=== PATIENT | male | born 2000 | race Caucasian/White ===

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

== ENCOUNTER 2021-01-30 13:15 | Emergency (ER) | payer BC, MEDICAID, OTHER ==
--- NOTE | 2021-01-30 13:44 | EDM.PDOC ---
ED HPI GENERAL MEDICAL PROBLEM - General Chief Complaint: Respiratory Problem Stated Complaint: SOB Time Seen by Provider: 01/30/21 13:30 Source of Information: Reports: Patient History Limitations: Reports: No Limitations - History of Present Illness INITIAL COMMENTS - FREE TEXT/NARRATIVE: Patient presents for chest congestion, tightness in the chest, difficulty to take a deep breath. He works at [employer] in [place] and originally became ill 1 month ago. He had cough, green sputum and felt unwell. Was seen by a physician, started on a " pink " antibiotic twice a day and an inhaler. He states that the inhaler seemed to help him, but the antibiotics did not change anything. He continued to have sputum, now has some bloody flecks in it, feels like it is difficult to take a deep breath. Is able to lay flat to sleep, still using the inhaler. Is a smoker and vapes, usually nicotine, but sometimes marijuana. No fevers, headaches, runny nose, body aches, tick or bug bites, no neck stiffness. Has not had covid, no known sick contacts, and has not had the covid vaccine. He presents today because he is worsening and feels like he can not take a deep breath. Onset: Gradual Duration: Getting Worse Location: Reports: Chest Quality: Reports: Dull Severity: Moderate Improves with: Reports: Other (his inhaler) Associated Symptoms: Reports: Other (course of antibiotics, inhaler) - Related Data Allergies Allergy/AdvReac Type Severity Reaction Status Date / Time No Known Allergies Allergy Verified 12/18/19 00:57 Home Meds: Home Meds QUEtiapine Fumarate [Quetiapine Fumarate] 400 mg PO BEDTIME 07/10/18 [History] Amphetamine/Dextroamphetamine [Adderall XR] 1 tab PO DAILY 01/30/21 [History] Past Medical History HEENT History: Reports: Impaired Vision, Other (See Below) Other HEENT History: Patient wears glasses sometimes soft contact lenses. Cardiovascular History: Reports: None Respiratory History: Reports: None Gastrointestinal History: Reports: GERD, None Genitourinary History: Reports: None Musculoskeletal History: Reports: None Neurological History: Reports: Headaches, Chronic, None Psychiatric History: Reports: ADD, ADHD, Anxiety, Depression, Other (See Below), Suicide Attempt, Suicidal Ideation Other Psychiatric History: Patient did try to hang himself at age 9 with no inpatient psychiatric treatment at that time however subsequent counseling. Endocrine/Metabolic History: Reports: None Hematologic History: Reports: None Immunologic History: Reports: None Oncologic (Cancer) History: Reports: None Dermatologic History: Reports: Other (See Below) Other Dermatologic History: Mild acne vulgaris - Infectious Disease History Infectious Disease History: Reports: None. Denies: C-Difficile, Chicken Pox, Measles, Meningitis, Mononucleosis, MRSA, Mumps, Pertussis (Whooping Cough), Rheumatic Fever, Rubella, Scarlet Fever, Shingles, TB, VRE - Past Surgical History Head Surgeries/Procedures: Reports: None HEENT Surgical History: Reports: None Cardiovascular Surgical History: Reports: None Respiratory Surgical History: Reports: None GI Surgical History: Reports: None Male Surgical History: Reports: Circumcision, Other (See Below) Other Male Surgeries/Procedures: Circumcision as an infant Endocrine Surgical History: Reports: None Neurological Surgical History: Reports: None Musculoskeletal Surgical History: Reports: None Oncologic Surgical History: Reports: None Dermatological Surgical History: Reports: None - Past Imaging History Past Imaging History: Reports: None. Denies: CAT Scan Social & Family History - Family History Psychiatric: Reports: Anxiety, Bipolar, Depression, Other (See Below) Other Psychiatric Family History: Father with alcohol abuse and anxiety depression disorder. Mother with bipolar disorder. - Tobacco Use Tobacco Use Status *Q: Current Every Day Tobacco User Tobacco Use Within Last Twelve Months: Cigarettes, Vaping - Caffeine Use Caffeine Use: Reports: Energy Drinks (1 can per week), Soda (3 sodas per week). 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 Denies: Fever, Chills, Malaise, Decreased Appetite HEENT: Reports: No Symptoms. Denies: Ear Discharge, Rhinitis, Sinus Problem, Throat Pain, Throat Swelling Respiratory: Reports: Shortness of Breath, Pleuritic Chest Pain, Cough, Sputum, Hemoptysis Cardiovascular: Reports: Chest Pain, Dyspnea on Exertion. Denies: Edema, Lightheadedness Endocrine: Reports: No Symptoms GI/Abdominal: Reports: No Symptoms. Denies: Abdominal Pain, Anorexia, Black Stool, Diarrhea, Nausea, Vomiting : Reports: No Symptoms. Denies: Dysuria, Flank Pain, Frequency Musculoskeletal: Reports: No Symptoms. Denies: Joint Pain, Muscle Pain Skin: Denies: Rash Neurological: Reports: No Symptoms. Denies: Confusion, Dizziness, Headache, Numbness, Paresthesia Psychiatric: Reports: No Symptoms. Denies: Depression, Suicidal Ideation Hematologic/Lymphatic: Reports: No Symptoms ED EXAM, GENERAL - Physical Exam Exam: See Below Exam Limited By: No Limitations General Appearance: Alert, WD/WN, No Apparent Distress Eye Exam: Bilateral Eye: EOMI, Normal Inspection, PERRL Ears: Normal External Exam, Normal Canal, Hearing Grossly Normal, Normal TMs Nose: Nasal Swelling, Other (no sinus tenderness to percussion in frontal or maxillary). No: Nasal Tenderness, Nasal Drainage, Clear Rhinorrhea Throat/Mouth: Normal Lips, Normal Teeth, Normal Gums, Normal Voice, No Airway Compromise, Other (2+ large tonsils, no erythema or exudate) Head: Atraumatic, Normocephalic Neck: Normal Inspection, Supple, Non-Tender, Full Range of Motion. No: Lymphadenopathy (L), Lymphadenopathy (R) Respiratory/Chest: No Respiratory Distress, Lungs Clear, Normal Breath Sounds, Chest Non-Tender, Decreased Breath Sounds (bases minimally) Cardiovascular: Normal Peripheral Pulses, Regular Rate, Rhythm, No Edema GI/Abdominal: Normal Bowel Sounds Extremities: Normal Inspection, Normal Range of Motion, Non-Tender. No: Pedal Edema Neurological: Alert, Oriented, CN II-XII Intact, Normal Cognition, Normal Gait, No Motor/Sensory Deficits Psychiatric: Normal Affect, Normal Mood #1 Interpretation EKG Date: 01/30/21 Time: 13:57 Rhythm: NSR Rate (Beats/Min): 79 Spring: Normal P-Wave: Present QRS: Normal ST-T: Normal QT: Normal Comparison: NA - No Prior EKG Course - Vital Signs Last Recorded V/S: Last Vital Signs Temp 36.7 C 01/30/21 13:15 Pulse 84 01/30/21 13:15 Resp 18 01/30/21 13:15 BP 130/74 01/30/21 13:15 Pulse Ox 100 01/30/21 13:15 - Orders/Labs/Meds Orders: Active Orders 24 hr Category Date Time Status Chest 2V [CR] Stat Exams 01/30/21 14:20 Taken CORONAVIRUS COVID-19 IGNACIO [MOLEC] Stat Lab 01/30/21 13:40 Received Labs: Laboratory Tests 01/30/21 01/30/21 01/30/21 Range/Units 13:40 13:45 13:45 WBC 6.8 (4.0-10.2) K/uL RBC 4.31 L (4.33-5.41) M/uL Hgb 13.1 D (13.1-16.8) g/dL Hct 39.6 (39.0-49.0) % MCV 91.9 D (84.0-98.0) fL MCH 30.4 (28.2-33.3) pg MCHC 33.1 (31.7-36.0) g/dL RDW 13.4 (11.2-14.1) % Plt Count 227 (150-350) K/uL Neut % (Auto) 59.1 (45.0-80.0) % Lymph % (Auto) 27.7 (10.0-50.0) % Randall % (Auto) 9.7 (2.0-14.0) % Eos % (Auto) 3.2 (0.0-5.0) % Baso % (Auto) 0.3 (0.0-2.0) % Neut # (Auto) 4.03 (1.40-7.00) K/uL Lymph # (Auto) 1.89 (0.50-3.50) K/uL Randall # (Auto) 0.66 (0.00-1.00) K/uL Eos # (Auto) 0.22 (0.00-0.50) K/uL Baso # (Auto) 0.02 (0.00-0.20) K/uL D-Dimer, Quantitative < 100 (0-400) ng/mL Sodium (136-145) mmol/L Potassium (3.5-5.1) mmol/L Chloride (98-107) mmol/L Carbon Dioxide (21.0-32.0) mmol/L Anion Gap (7-15) meq/L BUN (7-18) mg/dL Creatinine (0.51-1.17) mg/dL Est Cr Clr Drug Dosing Estimated GFR (MDRD) mL/min Glucose (70-99) mg/dL Calcium (8.5-10.1) mg/dL Total Bilirubin (0.2-1.0) mg/dL AST (15-37) U/L ALT (12-78) U/L Alkaline Phosphatase (46-116) IU/L Troponin I High Sens (<=76) ng/L C-Reactive Protein (<=0.9) mg/dL Total Protein (6.4-8.2) g/dL Albumin (3.4-5.0) g/dL SARS-CoV-2 Ag (Rapid) Negative (NEGATIVE) 01/30/21 Range/Units 13:45 WBC (4.0-10.2) K/uL RBC (4.33-5.41) M/uL Hgb (13.1-16.8) g/dL Hct (39.0-49.0) % MCV (84.0-98.0) fL MCH (28.2-33.3) pg MCHC (31.7-36.0) g/dL RDW (11.2-14.1) % Plt Count (150-350) K/uL Neut % (Auto) (45.0-80.0) % Lymph % (Auto) (10.0-50.0) % Randall % (Auto) (2.0-14.0) % Eos % (Auto) (0.0-5.0) % Baso % (Auto) (0.0-2.0) % Neut # (Auto) (1.40-7.00) K/uL Lymph # (Auto) (0.50-3.50) K/uL Randall # (Auto) (0.00-1.00) K/uL Eos # (Auto) (0.00-0.50) K/uL Baso # (Auto) (0.00-0.20) K/uL D-Dimer, Quantitative (0-400) ng/mL Sodium 143 (136-145) mmol/L Potassium 3.9 (3.5-5.1) mmol/L Chloride 107 (98-107) mmol/L Carbon Dioxide 25.4 (21.0-32.0) mmol/L Anion Gap 10.6 (7-15) meq/L BUN 17 (7-18) mg/dL Creatinine 0.85 (0.51-1.17) mg/dL Est Cr Clr Drug Dosing TNP Estimated GFR (MDRD) > 60 mL/min Glucose 100 H (70-99) mg/dL Calcium 8.5 (8.5-10.1) mg/dL Total Bilirubin 0.5 (0.2-1.0) mg/dL AST 24 (15-37) U/L ALT 46 (12-78) U/L Alkaline Phosphatase 68 (46-116) IU/L Troponin I High Sens 10 (<=76) ng/L C-Reactive Protein < 0.2 (<=0.9) mg/dL Total Protein 7.1 (6.4-8.2) g/dL Albumin 4.3 (3.4-5.0) g/dL SARS-CoV-2 Ag (Rapid) (NEGATIVE) Meds: Medications Discontinued Medications Generic Name Dose Route Start Last Admin Trade Name Jeremías PRN Reason Stop Dose Admin Azithromycin 500 mg 01/30/21 15:07 Azithromycin 250 Mg Tab PO 01/30/21 15:08 ONETIME ONE - Radiology Interpretation Free Text/Narrative:: no acute changes, preliminary read, official pending - Re-Assessments/Exams Free Text/Narrative Re-Assessment/Exam: 01/30/21 13:51 Patient presents with a month long compliant of cough, worsening shortness of breath and blood tinged sputum. he is a smoker and vapes nicotine and marijuana. Unvaccinated against covid 19 but works at a place of employment known [employer] have documented cases in the last month. Non toxic appearing. will check for covid 19, labs for infection, ddimer, troponin to work up the chest tightness. imaging dependent on the test results. VSS 01/30/21 14:23 rapid covid negative. normal ddimer, will get chest x-ray and await pcr covid. EKG normal. was probably treated with amoxicillin or augmentin. no allergies 01/30/21 15:17 Discussed with the patient normal testing, PCR covid pending. discussed stopping vaping and smoking. Given azithromycin 500 mg po here, then daily for three days to cover atypical like mycoplasma, prednisone 40 mg daily and the albuterol inhaler and PCP follow up . Departure - Departure Time of Disposition: 15:02 Disposition: Home, Self-Care 01 Condition: Good Clinical Impression: Bronchitis - Discharge Information *PRESCRIPTION DRUG MONITORING PROGRAM REVIEWED*: Not Applicable *COPY OF PRESCRIPTION DRUG MONITORING REPORT IN PATIENT MANDY: Not Applicable Instructions: Steps to Quit Smoking, [id number], Electronic Cigarette Information, Metered Dose Inhaler (No Spacer Used), Acute Bronchitis, Adult, [id number] Referrals: Clifford Jeffers PA [Primary Care Provider] - Forms: ED Department Discharge Additional Instructions: You were given the azithromycin 2 tablets today and then one tablet daily until gone. Take the prednisone 40 mg daily ( four tablets daily )for 5 days. You are given . You are given a refill of the albuterol inhaler, two puffs every 4-6 hours as needed for cough and shortness of breath. consider stopping smoking. follow up with primary care physician . Sepsis Event Note (ED) - Evaluation Sepsis Screening Result: No Definite Risk - Focused Exam Vital Signs: Vital Signs Temp Pulse Resp BP Pulse Ox 01/30/21 13:15 36.7 C 84 18 130/74 100 - My Orders Last 24 Hours: My Active Orders 01/30/21 13:40 CORONAVIRUS COVID-19 IGNACIO [MOLEC] Stat 01/30/21 14:20 Chest 2V [CR] Stat - Assessment/Plan Last 24 Hours: My Active Orders 01/30/21 13:40 CORONAVIRUS COVID-19 IGNACIO [MOLEC] Stat 01/30/21 14:20 Chest 2V [CR] Stat
[2021-01-30 14:10] LABS: ANION GAP 10.6 meq/L (7-15); CHLORIDE,CL 107 mmol/L (98-107); SODIUM,NA 143 mmol/L (136-145)
[2021-01-30] MEDS ORDERED: Azithromycin 250 MG Tab PO ONE (15:07)
== END 2021-01-30 15:22 | disposition home or self-care (01) ==
LOC: LL.ED 13:15
DX: J40 Bronchitis, not specified as acute or chronic (principal); Z20.822 Contact with and (suspected) exposure to COVID-19; Z79.899 Other long term (current) drug therapy; Z72.0 Tobacco use
CPT/HCPCS: 36415; 71046; 80053; 84484; 85025; 85379; 86140; 87426; 93005; 93010; 99284; 99285-25; A9270-GY; U0002